=== PATIENT | male | born 1975 | race Caucasian/White ===

== ENCOUNTER 2018-02-13 12:05 | Emergency (ER) | payer MEDICAID ==
[2018-02-13 12:12] VITALS: BP 114/60
[2018-02-13] MEDS ORDERED: TDAP ADULT 0.5 ML INJ (BOOSTRIX) IM ONE (13:05)
--- NOTE | 2018-02-13 13:05 | EDPHY ---
General - History Smoking Status: Heavy smoker Time Seen by Provider: 02/13/18 12:52 Narrative: CHIEF COMPLAINT: Fall, head injury HISTORY OF PRESENT ILLNESS: Patient presents with complaints of headache and left-sided facial pain status post fall. He says he tripped and fell twice last night around midnight and 2: 00 a.m.. He denies any loss of consciousness but states that he is not entirely sure. He says that he felt all came with the bed. He woke this morning with some swelling, pain and bruising over the left eye. No nausea or vomiting. No neck pain or stiffness. No pain anywhere else on his person. He says that he was not drinking or using any substances last night. These were mechanical falls. He denies any visual disturbance. No other associated complaints or modifying factors REVIEW OF SYSTEMS: Ten systems reviewed and are negative unless otherwise noted in the HPI PCP: [facility] SPECIALISTS: None PAST MEDICAL HISTORY: Uncomplicated PAST SURGICAL HISTORY: No surgical history SOCIAL HISTORY: Nonsmoker. Lives independently as a camejo FAMILY HISTORY: Noncontributory EXAMINATION General Appearance: Alert, no distress. Well-developed well-nourished. Head: normocephalic. No depression. No raccoon eyes. No Shah sign. There is superficial hematoma ecchymosis to the left supraorbital region. No crepitus. No tenderness of the mid face. Eyes: Pupils equal and round, no conjunctival pallor or injection. EOM symmetric. No diplopia with EOMs. ENT, Mouth: Mucous membranes moist Neck: Normal inspection, supple, non-tender. No pain with any range of motion. No meningismus. Respiratory: Lungs are clear to auscultation Cardiovascular: Regular rate and rhythm. No murmur Gastrointestinal: Abdomen is soft and nontender Back: non-tender, no bony abnormalities Neurological: GCS 15. A&O, nonfocal, normal gait. Strength symmetric Skin: Warm and dry, no rash. Superficial abrasion to the left forehead. No pulsatile bleeding. No laceration that requires repair Extremities: Nontender, no pedal edema Psychiatric: Mood and affect normal DIFFERENTIAL DIAGNOSES: Including but not limited to orbital fracture, hematoma, laceration, intracranial hemorrhage, concussion MDM: 1:05 p.m. Mechanical fall with closed head injury. No mandibular pain. No trismus. He does have pain, swelling, ecchymosis and laceration to the left supra orbital region. There is no diplopia with extraocular movement. No neck pain. He is neuro intact distally. I have ordered imaging of the head due to the obvious trauma into rule out orbital fracture. He is resting comfortably in no acute distress. Tetanus will be updated. 1:45 p.m. Notified by radiologist Dr. Villalta. CT scan of the head reveals no evidence of fracture. Some periodontal disease noted. 1:50 p.m. Patient re-evaluated. He is resting comfortably. We discussed the negative CT scan finding. His left eyebrow has been cleaned as a suspected maybe a small laceration below this. 2:00 p.m. Laceration over the left forehead that is superficial and does not require suture repair. He will be discharged in stable condition with outpatient follow -up for concussion and his primary care physician. We discussed return to emergency department precautions for any worsening headache, visual disturbance , neck pain or stiffness, vomiting. He is comfortable this plan and discharged home stable condition. SUPERVISION: This patient was independently evaluated without direct involvement of or examination by the attending physician. (Klaus Lenz) The patient was evaluated and managed by the physician assistant manager quality management. I have reviewed this chart and I agree with the findings and plan of care as documented , as indicated by my signature. I am the secondary supervising physician. ( Vicenta Corona) - Objective Vital Signs: Initial Vital Signs Temperature (C) 36.7 C 02/13/18 12:09 Heart Rate 97 02/13/18 12:09 Respiratory Rate 18 02/13/18 12:09 Blood Pressure 114/60 02/13/18 12:09 O2 Sat (%) 96 02/13/18 12:09 O2 Delivery Mode Room Air Allergies/Adverse Reactions: No Known Allergies Allergy (Unverified 05/06/16 20:29) Home Medications: Medication Instructions Recorded NK [No Known Home Meds] 02/13/18 Medications Given: Discontinued Medications Diphtheria/Tetanus/Acell Pertussis (Boostrix) 0.5 ml IM .ONCE ONE Stop: 02/13/18 13:06 Last Admin: 02/13/18 13:55 Dose: 0.5 ml Departure - Departure Disposition: Home, Routine, Self-Care Clinical Impression: Head injury, Concussion Condition: Good Instructions: Concussion (ED), Head Injury (ED) Additional Instructions: 1. Ice to the affected area as needed 2. Ibuprofen 400 mg every 6-8 hours as needed 3. Tylenol 500-650 mg every 6-8 hours as needed 4. Contact primary care physician and concussion specialist as provided 5. ED precautions as discussed Referrals: [facility] RODGERS [Other] - As per Instructions Colleen Mcmahon MD [Medical Doctor] - As per Instructions
== END 2018-02-13 14:44 | disposition home or self-care (01) ==
DX: S06.0X0A Concussion without loss of consciousness, initial encounter (principal); F17.200 Nicotine dependence, unspecified, uncomplicated; Z23 Encounter for immunization; W01.0XXA Fall on same level from slipping, tripping and stumbling without subsequent striking against object, initial encounter